=== PATIENT | male | born 1980 | race Two or more races ===

== ENCOUNTER 2017-12-19 08:24 | Outpatient (CLI) | payer OTHER | END 2017-12-19 10:49 | disposition home or self-care (01) | LOC: NUCLEAR 08:24 | DX: R94.31 Abnormal electrocardiogram [ECG] [EKG] (principal) ==

== ENCOUNTER 2019-11-30 14:27 | Outpatient (CLI) | payer OTHER | END 2019-11-30 14:28 | disposition home or self-care (01) | LOC: NUCLEAR 14:27 | PROVIDERS: ATTEND Internal Medicine Cardiovascular Disease | DX: I11.9 Hypertensive heart disease without heart failure (principal); R00.1 Bradycardia, unspecified; Z95.0 Presence of cardiac pacemaker | CPT/HCPCS: 78472; 93017; A9560 ==

== ENCOUNTER 2019-12-10 09:29 | Outpatient (CLI) | payer OTHER | END 2019-12-10 09:44 | disposition home or self-care (01) | LOC: NUCLEAR 09:29 | PROVIDERS: ATTEND Internal Medicine Cardiovascular Disease | DX: R00.8 Other abnormalities of heart beat (principal) ==